=== PATIENT | male | born 1975 | race Caucasian/White ===

== ENCOUNTER 2019-08-28 17:46 | Inpatient (IN) | payer MEDICARE, MEDICAID, OTHER ==
[~2019-08-28] VITALS: Ht 170.2 cm; Wt 72.7 kg
[~2019-08-28 17:46] MED LIST: DIPH25 PO; FLUD25I SQ; FLUP10 PO; VALP250S23 PO
[2019-08-28] MEDS ORDERED: TRAZ-252 PO (18:39)
[2019-08-28] MEDS ORDERED: ATOR20TA86 PO (18:39)
[2019-08-28] MEDS ORDERED: IBUP-2071 PO (18:39)
[2019-08-28] MEDS ORDERED: LORazepam 2 MG/ML VIAL IM ONE (20:15)
[2019-08-28] MEDS ORDERED: ZOLPIDEM TARTRATE 10 MG TABLET PO PRN (21:00)
[2019-08-28] MEDS ORDERED: QUEtiapine FUMARATE 100 MG TABLET PO PRN (21:00)
[2019-08-28] MEDS ORDERED: LORazepam 2 MG TABLET PO PRN (21:00)
[2019-08-28] MEDS ORDERED: ZIPRASIDONE MESYLATE 20 MG/VIAL IM ONE (21:30)
[2019-08-28] MEDS ORDERED: DiphenhydrAMINE HCL 50 MG/ML VIAL IM ONE (21:30)
[2019-08-29 00:43] LABS: BASOPHILS % (AUTO) 0.4 % (0.0-2.0); EOSINOPHILS % (AUTO) 2.7 % (1.0-6.0); HEMATOCRIT 39.7 % (41-53); HEMOGLOBIN 13.2 g/dL (13.5-17.5); LYMPHOCYTES # (AUTO) 3.6 K/uL (1.0-4.8); LYMPHOCYTES % (AUTO) 44.7 % (22.0-44.0); MEAN CORPUSCULAR HEMOGLOBIN 31.9 pg (26.0-34.0); MEAN CORPUSCULAR HGB CONC 33.3 G/dL (31.0-37.0); MEAN CORPUSCULAR VOLUME 96 fL (80-100); MONOCYTES # (AUTO) 0.6 K/uL (0.1-1.0); MONOCYTES % (AUTO) 7.9 % (2.0-9.0); NEUTROPHILS # (AUTO) 3.6 K/uL (1.8-7.7); NEUTROPHILS % (AUTO) 44.3 % (40.0-70.0); PLATELET COUNT (AUTO) 173 K/uL (150-450); RED BLOOD CELL COUNT(AUTO) 4.15 MIL/uL (4.50-5.90); RED CELL DISTRIBUTION WIDTH 14.1 % (11.5-14.5)
[2019-08-29 00:46] LABS: ANION GAP 7 mmol/L (8-16); CALCIUM, TOTAL 8.1 mg/dL (8.8-10.5); CARBON DIOXIDE 28 mmol/L (22-29); CHLORIDE 107 mmol/L (98-107); CREATININE 1.03 mg/dL (0.60-1.30); GLOMERULAR FILTR. RATE CALC > 60 mL/min (>60); GLUCOSE,RANDOM 112 mg/dL (70-110); SODIUM SERUM 142 mmol/L (136-145); UREA NITROGEN, BLOOD 20 mg/dL (7-18)
[2019-08-29 00:51] LABS: ALANINE AMINOTRANSFERASE 35 U/L (12-78); ALBUMIN 3.2 g/dL (3.4-5.0); ALKALINE PHOSPHATASE 54 U/L (46-116); ASPARTATE AMINOTRANSFERASE 15 U/L (15-37); BILIRUBIN,TOTAL 0.2 mg/dL (0.1-1.0); TOTAL PROTEIN, SERUM 5.8 g/dL (6.4-8.2)
[2019-08-29 03:29] LABS: CHOL/HDL RATIO 2.6 (4.2-7.3); CHOLESTEROL 113 mg/dL (131-200); HDL CHOLESTEROL 44 mg/dL (40-60); LDL CHOL (CALC.) 55 mg/dL (0-130); TRIGLYCERIDES 68 mg/dL (15-150)
[2019-08-29 05:25] VITALS: BP 120/70
[2019-08-29] MEDS ORDERED: INFLUENZA VIRUS VACCINE QVS 2019-20 (3YR+)/PF 60 MCG/0.5 ML SYRINGE IM ONE (06:00)
[2019-08-29 10:09] VITALS: BP 119/79
[2019-08-29 16:37] VITALS: BP 116/76
[2019-08-30 06:59] VITALS: BP 121/69
[2019-08-30 08:09] VITALS: BP 100/61
[2019-08-30] MEDS ORDERED: LOPERAMIDE HCL 2 MG CAPSULE PO PRN (10:15)
[2019-08-30] MEDS ORDERED: ONDANSETRON HCL 4 MG TABLET PO PRN (10:15)
[2019-08-30] MEDS ORDERED: PETROLATUM,WHITE 28 GM JELLY TP PRN (10:15)
[2019-08-30] MEDS ORDERED: GuaiFENesin/D-METHORPHAN [SUGAR-FREE] 200-20MG/10 ML SYRUP UDCUP PO PRN (10:15)
[2019-08-30] MEDS ORDERED: CloNIDine HCL 0.1 MG TABLET PO PRN (10:15)
[2019-08-30] MEDS ORDERED: DOCUSATE SODIUM 100 MG CAPSULE PO PRN (10:15)
[2019-08-30] MEDS ORDERED: MAGNESIUM HYDROXIDE SUSPENSION 30 ML UDCUP PO PRN (10:15)
[2019-08-30] MEDS ORDERED: NICOTINE 14 MG/24 HOUR PATCH TD PRN (10:15)
[2019-08-30] MEDS ORDERED: ACETAMINOPHEN 325 MG TABLET PO PRN (10:15)
[2019-08-30] MEDS ORDERED: ALBUTEROL SULFATE HFA 90 MCG/PUFF 8 GM INHALER IH PRN (10:15)
[2019-08-30] MEDS ORDERED: MAG HYDROX/AL HYDROX/SIMETH ES 30 ML SUSPENSION UDCUP PO PRN (10:15)
[2019-08-30 16:00] VITALS: BP 135/88
[2019-08-30] MEDS: IBUPROFEN 400 MG TABLET PO PRN (16:52)
[2019-08-30] MEDS: TraZODone HCL 50 MG TABLET PO SCH (20:51)
[2019-08-30] MEDS ORDERED: RisperiDONE MICROSPHERES 50 MG/2 ML SYRINGE IM SCH (21:00)
[2019-08-31 06:41] VITALS: BP 122/64
[2019-08-31] MEDS: DiphenhydrAMINE HCL 25 MG CAPSULE PO SCH ×3 (09:26→16:29)
[2019-08-31] MEDS: ATORVASTATIN CALCIUM 20 MG TABLET PO SCH (09:26)
[2019-08-31 13:33] VITALS: BP 113/65
[2019-08-31 16:18] VITALS: BP 137/80
[2019-08-31] MEDS: TraZODone HCL 50 MG TABLET PO SCH (20:20)
[2019-09-01 06:16] VITALS: BP 129/69
[2019-09-01] MEDS: IBUPROFEN 400 MG TABLET PO PRN (06:47)
[2019-09-01 07:47] VITALS: BP 133/68
[2019-09-01 08:13] VITALS: BP 133/68
[2019-09-01] MEDS: DiphenhydrAMINE HCL 25 MG CAPSULE PO SCH ×3 (08:25→16:18)
[2019-09-01] MEDS: ATORVASTATIN CALCIUM 20 MG TABLET PO SCH (08:26)
[2019-09-01 16:02] VITALS: BP 114/68
[2019-09-01] MEDS: TraZODone HCL 50 MG TABLET PO SCH (19:52)
[2019-09-02 06:34] VITALS: BP 125/79
[2019-09-02 08:16] VITALS: BP 135/82
[2019-09-02] MEDS ORDERED: TRAZ-252 PO (08:37)
[2019-09-02] MEDS ORDERED: RISPC50 IM (08:38)
[2019-09-02] MEDS ORDERED: DIPH25 PO (08:38)
[2019-09-02] MEDS: DiphenhydrAMINE HCL 25 MG CAPSULE PO SCH (08:58)
[2019-09-02] MEDS: ATORVASTATIN CALCIUM 20 MG TABLET PO SCH (08:58)
== END 2019-09-02 12:40 | disposition home or self-care (01) | DRG 885 ==
LOC: EMS 17:48 → B3A 08-29 03:17
PROVIDERS: ADMIT Psychiatry & Neurology Psychiatry; ATTEND Psychiatry & Neurology Psychiatry
DX: F20.0 Paranoid schizophrenia (principal); D64.9 Anemia, unspecified; E03.9 Hypothyroidism, unspecified; E78.00 Pure hypercholesterolemia, unspecified; E78.5 Hyperlipidemia, unspecified; F10.10 Alcohol abuse, uncomplicated; F17.210 Nicotine dependence, cigarettes, uncomplicated; I10 Essential (primary) hypertension; J44.9 Chronic obstructive pulmonary disease, unspecified; K21.9 Gastro-esophageal reflux disease without esophagitis; Z71.6 Tobacco abuse counseling; Z79.899 Other long term (current) drug therapy
CPT/HCPCS: 90686; 96372; 99406; G0480; J1200; J2060; J2794; J3486

== ENCOUNTER 2020-05-30 19:39 | Inpatient (IN) | payer MEDICARE, MEDICAID ==
[~2020-05-30] VITALS: Ht 167.6 cm; Wt 74.4 kg
[~2020-05-30 19:39] MED LIST changes: +ATOR20TA86 PO; -FLUD25I SQ; -FLUP10 PO; +OMEP20 PO; +TRAZ-252 PO; -VALP250S23 PO
[2020-05-30] MEDS ORDERED: TUBERCULIN, PURIFIED PROTEIN DERIVATIVE 5 TU/0.1 ML SYRINGE ID ONE (20:15)
[2020-05-30] MEDS ORDERED: ZIPRASIDONE MESYLATE 20 MG/VIAL IM ONE ×2 (20:15→20:25)
[2020-05-30] MEDS ORDERED: ZOLPIDEM TARTRATE 10 MG TABLET PO PRN (20:15)
[2020-05-30] MEDS ORDERED: MAGNESIUM HYDROXIDE SUSPENSION 30 ML UDCUP PO PRN (20:15)
[2020-05-30] MEDS ORDERED: QUEtiapine FUMARATE 100 MG TABLET PO PRN (20:15)
[2020-05-30] MEDS ORDERED: PROMETHAZINE HCL 25 MG TABLET PO PRN (20:15)
[2020-05-30] MEDS ORDERED: LORazepam 2 MG TABLET PO PRN (20:15)
[2020-05-30] MEDS ORDERED: HydrOXYzine PAMOATE 50 MG CAPSULE PO PRN (20:15)
[2020-05-30] MEDS ORDERED: ACETAMINOPHEN 325 MG TABLET PO PRN (20:15)
[2020-05-30] MEDS ORDERED: MAG HYDROX/AL HYDROX/SIMETH ES 30 ML SUSPENSION UDCUP PO PRN (20:15)
[2020-05-30] MEDS ORDERED: GuaiFENesin/D-METHORPHAN [SUGAR-FREE] 200-20MG/10 ML SYRUP UDCUP PO PRN (20:15)
[2020-05-30] MEDS ORDERED: LOPERAMIDE HCL 2 MG CAPSULE PO PRN (20:15)
[2020-05-30] MEDS ORDERED: QUEtiapine FUMARATE 200 MG TABLET PO SCH (21:00)
[2020-05-30] MEDS ORDERED: DIVALPROEX SODIUM 500 MG ER TABLET PO SCH (21:00)
[2020-05-31 06:22] VITALS: BP 132/83
[2020-05-31 08:50] VITALS: BP 126/73
[2020-05-31] MEDS: THIAMINE 100 MG TABLET PO SCH ×3 (08:50→16:27)
[2020-05-31] MEDS: FOLIC ACID 1 MG TABLET PO SCH (08:50)
[2020-05-31] MEDS ORDERED: MULTIVITAMINS WITH MINERALS, THERAPEUTIC TABLET PO SCH (09:00)
[2020-05-31] MEDS: NALTREXONE HCL 50 MG TABLET PO SCH (09:00)
[2020-05-31] MEDS ORDERED: HydrOXYzine PAMOATE 50 MG CAPSULE PO PRN (15:30)
[2020-05-31] MEDS ORDERED: GuaiFENesin/D-METHORPHAN [SUGAR-FREE] 200-20MG/10 ML SYRUP UDCUP PO PRN (15:30)
[2020-05-31] MEDS ORDERED: PALIPERIDONE 1.5 MG ER TABLET PO PRN (15:30)
[2020-05-31 16:13] VITALS: BP 124/71
[2020-05-31] MEDS: TraZODone HCL 50 MG TABLET PO SCH (20:31)
[2020-05-31] MEDS: DiphenhydrAMINE HCL 25 MG CAPSULE PO SCH (20:31)
[2020-05-31] MEDS: PALIPERIDONE 3 MG ER TABLET PO SCH (20:31)
[2020-06-01 00:15] VITALS: BP 125/74
[2020-06-01 07:17] LABS: BASOPHILS % (AUTO) 0.5 % (0.0-2.0); EOSINOPHILS % (AUTO) 2.2 % (1.0-6.0); HEMATOCRIT 41.8 % (41-53); HEMOGLOBIN 14.1 g/dL (13.5-17.5); LYMPHOCYTES # (AUTO) 2.7 K/uL (1.0-4.8); LYMPHOCYTES % (AUTO) 41.6 % (22.0-44.0); MEAN CORPUSCULAR HEMOGLOBIN 32.5 pg (26.0-34.0); MEAN CORPUSCULAR HGB CONC 33.8 G/dL (31.0-37.0); MEAN CORPUSCULAR VOLUME 96 fL (80-100); MONOCYTES # (AUTO) 0.4 K/uL (0.1-1.0); MONOCYTES % (AUTO) 6.2 % (2.0-9.0); NEUTROPHILS # (AUTO) 3.2 K/uL (1.8-7.7); NEUTROPHILS % (AUTO) 49.5 % (40.0-70.0); PLATELET COUNT (AUTO) 196 K/uL (150-450); RED BLOOD CELL COUNT(AUTO) 4.34 MIL/uL (4.50-5.90); RED CELL DISTRIBUTION WIDTH 13.9 % (11.5-14.5)
[2020-06-01 07:47] LABS: ALANINE AMINOTRANSFERASE 25 U/L (12-78); ALBUMIN 3.7 g/dL (3.4-5.0); ALKALINE PHOSPHATASE 61 U/L (46-116); ANION GAP 6 mmol/L (8-16); ASPARTATE AMINOTRANSFERASE 12 U/L (15-37); BILIRUBIN,TOTAL 0.2 mg/dL (0.1-1.0); CARBON DIOXIDE 30 mmol/L (22-29); CHLORIDE 107 mmol/L (98-107); CHOL/HDL RATIO 3.3 (4.2-7.3); CHOLESTEROL 145 mg/dL (131-200); CREATININE 1.12 mg/dL (0.60-1.30); FREE T4 (FREE THYROXINE) 0.96 ng/dL (0.76-1.46); GLOMERULAR FILTR. RATE CALC > 60 mL/min (>60); GLUCOSE,RANDOM 98 mg/dL (70-110); HDL CHOLESTEROL 44 mg/dL (40-60); LDL CHOL (CALC.) 63 mg/dL (0-130); POTASSIUM 4.6 mmol/L (3.5-5.1); SODIUM SERUM 143 mmol/L (136-145); THYROID STIMULATING HORMONE 0.93 uIU/mL (0.36-3.74); TOTAL PROTEIN, SERUM 6.5 g/dL (6.4-8.2); TRIGLYCERIDES 189 mg/dL (15-150); UREA NITROGEN, BLOOD 15 mg/dL (7-18)
[2020-06-01 07:55] LABS: HEMOGLOBIN A1C 5.8 % (3.8-5.6)
[2020-06-01] MEDS: NALTREXONE HCL 50 MG TABLET PO SCH (08:50)
[2020-06-01] MEDS: FOLIC ACID 1 MG TABLET PO SCH ×2 (08:51→09:35)
[2020-06-01] MEDS: THIAMINE 100 MG TABLET PO SCH ×3 (08:51→16:26)
[2020-06-01] MEDS: MULTIVITAMINS WITH MINERALS, THERAPEUTIC TABLET PO SCH (08:51)
[2020-06-01 09:52] VITALS: BP 120/54
[2020-06-01 16:16] VITALS: BP 109/67
[2020-06-01] MEDS: DiphenhydrAMINE HCL 25 MG CAPSULE PO SCH (20:37)
[2020-06-01] MEDS: TraZODone HCL 50 MG TABLET PO SCH (20:37)
[2020-06-01] MEDS: PALIPERIDONE 3 MG ER TABLET PO SCH (20:37)
[2020-06-02 05:55] VITALS: BP 116/74
[2020-06-02 08:12] VITALS: BP 123/64
[2020-06-02] MEDS: MULTIVITAMINS WITH MINERALS, THERAPEUTIC TABLET PO SCH (08:37)
[2020-06-02] MEDS: NALTREXONE HCL 50 MG TABLET PO SCH (08:37)
[2020-06-02] MEDS: FOLIC ACID 1 MG TABLET PO SCH (08:38)
[2020-06-02] MEDS: THIAMINE 100 MG TABLET PO SCH ×2 (08:38→16:17)
[2020-06-02 16:13] VITALS: BP 121/75
[2020-06-02] MEDS: TraZODone HCL 50 MG TABLET PO SCH (20:57)
[2020-06-02] MEDS: DiphenhydrAMINE HCL 25 MG CAPSULE PO SCH (20:57)
[2020-06-02] MEDS: PALIPERIDONE 3 MG ER TABLET PO SCH (20:58)
[2020-06-03 03:06] VITALS: BP 111/66
[2020-06-03 08:22] VITALS: BP 115/75
[2020-06-03] MEDS: NALTREXONE HCL 50 MG TABLET PO SCH ×2 (09:00→09:36)
[2020-06-03] MEDS: FOLIC ACID 1 MG TABLET PO SCH (09:36)
[2020-06-03] MEDS: MULTIVITAMINS WITH MINERALS, THERAPEUTIC TABLET PO SCH (09:36)
[2020-06-03] MEDS: THIAMINE 100 MG TABLET PO SCH ×2 (09:36→16:23)
[2020-06-03 16:17] VITALS: BP 128/77
[2020-06-03] MEDS: PALIPERIDONE 3 MG ER TABLET PO SCH (20:18)
[2020-06-03] MEDS: DiphenhydrAMINE HCL 25 MG CAPSULE PO SCH (20:18)
[2020-06-03] MEDS: TraZODone HCL 50 MG TABLET PO SCH (20:19)
[2020-06-04 06:04] VITALS: BP 120/87
[2020-06-04 08:31] VITALS: BP 122/67
[2020-06-04] MEDS: NALTREXONE HCL 50 MG TABLET PO SCH (08:43)
[2020-06-04] MEDS: THIAMINE 100 MG TABLET PO SCH ×2 (08:43→15:58)
[2020-06-04] MEDS: FOLIC ACID 1 MG TABLET PO SCH (08:43)
[2020-06-04] MEDS: MULTIVITAMINS WITH MINERALS, THERAPEUTIC TABLET PO SCH (08:43)
[2020-06-04 16:13] VITALS: BP 125/82
[2020-06-04] MEDS: TraZODone HCL 50 MG TABLET PO SCH (20:16)
[2020-06-04] MEDS: DiphenhydrAMINE HCL 25 MG CAPSULE PO SCH (20:16)
[2020-06-04] MEDS ORDERED: PALIPERIDONE 6 MG ER TABLET PO SCH (21:00)
[2020-06-05 04:48] VITALS: BP 119/74
[2020-06-05 09:00] VITALS: BP 108/55
[2020-06-05] MEDS: NALTREXONE HCL 50 MG TABLET PO SCH (09:20)
[2020-06-05] MEDS: NICOTINE 14 MG/24 HOUR PATCH TD SCH (09:20)
[2020-06-05] MEDS: ATORVASTATIN CALCIUM 20 MG TABLET PO SCH (09:20)
[2020-06-05] MEDS: MULTIVITAMINS WITH MINERALS, THERAPEUTIC TABLET PO SCH (09:20)
[2020-06-05] MEDS: THIAMINE 100 MG TABLET PO SCH ×2 (09:21→16:14)
[2020-06-05] MEDS: FOLIC ACID 1 MG TABLET PO SCH (09:42)
[2020-06-05 16:26] VITALS: BP 122/95
[2020-06-05] MEDS: TraZODone HCL 100 MG TABLET PO SCH (20:12)
[2020-06-05] MEDS: DiphenhydrAMINE HCL 25 MG CAPSULE PO SCH (20:12)
[2020-06-05] MEDS: PALIPERIDONE 9 MG ER TABLET PO SCH ×2 (20:42→21:20)
[2020-06-06 05:33] VITALS: BP 110/82
[2020-06-06 08:07] VITALS: BP 117/67
[2020-06-06] MEDS: ATORVASTATIN CALCIUM 20 MG TABLET PO SCH (08:23)
[2020-06-06] MEDS: THIAMINE 100 MG TABLET PO SCH ×2 (08:23→16:44)
[2020-06-06] MEDS: NICOTINE 14 MG/24 HOUR PATCH TD SCH (08:23)
[2020-06-06] MEDS: NALTREXONE HCL 50 MG TABLET PO SCH (08:23)
[2020-06-06] MEDS: FOLIC ACID 1 MG TABLET PO SCH (08:27)
[2020-06-06] MEDS: MULTIVITAMINS WITH MINERALS, THERAPEUTIC TABLET PO SCH (08:27)
[2020-06-06 09:13] LABS: APPEARANCE,URINE CLEAR (CLEAR); BILIRUBIN,URINE NEGATIVE (NEGATIVE); GLUCOSE, URINE (UA) NEGATIVE (NEGATIVE); KETONES,URINE TRACE mg/dL (NEGATIVE); LEUKOCYTE ESTERASE ,URINE NEGATIVE (NEGATIVE); NITRATE,URINE NEGATIVE (NEGATIVE); OCCULT BLOOD,URINE NEGATIVE (NEGATIVE); PROTEIN,URINE NEGATIVE (NEGATIVE); UROBILINOGEN,URINE 0.2 mg/dL (<=1.0)
[2020-06-06 09:14] LABS: AMPHET/METH SCREEN,URINE NEGATIVE (NEGATIVE); BARBITURATE SCREEN, URINE NEGATIVE (NEGATIVE); BENZODIAZEPINES SCREEN,URINE NEGATIVE (NEGATIVE); CANNABINOID SCREEN,URINE NEGATIVE (NEGATIVE); COCAINE SCREEN,URINE NEGATIVE (NEGATIVE); METHADONE SCREEN, URINE NEGATIVE (NEGATIVE); OPIATE SCREEN,URINE NEGATIVE (NEGATIVE)
[2020-06-06 09:18] LABS: PHENCYCLIDINE SCREEN,URINE NEGATIVE (NEGATIVE)
[2020-06-06 16:11] VITALS: BP 116/63
[2020-06-06] MEDS: TraZODone HCL 100 MG TABLET PO SCH (20:09)
[2020-06-06] MEDS: DiphenhydrAMINE HCL 25 MG CAPSULE PO SCH (20:09)
[2020-06-06] MEDS: PALIPERIDONE 9 MG ER TABLET PO SCH (20:09)
[2020-06-07 05:45] VITALS: BP 114/74
[2020-06-07] MEDS: FOLIC ACID 1 MG TABLET PO SCH (08:00)
[2020-06-07] MEDS: NALTREXONE HCL 50 MG TABLET PO SCH (08:00)
[2020-06-07] MEDS: THIAMINE 100 MG TABLET PO SCH ×2 (08:00→16:28)
[2020-06-07] MEDS: MULTIVITAMINS WITH MINERALS, THERAPEUTIC TABLET PO SCH (08:00)
[2020-06-07] MEDS: ATORVASTATIN CALCIUM 20 MG TABLET PO SCH (08:00)
[2020-06-07] MEDS: NICOTINE 14 MG/24 HOUR PATCH TD SCH (08:00)
[2020-06-07 08:16] VITALS: BP 117/73
[2020-06-07 16:00] VITALS: BP 110/72
[2020-06-07] MEDS: DiphenhydrAMINE HCL 25 MG CAPSULE PO SCH (20:11)
[2020-06-07] MEDS: PALIPERIDONE 9 MG ER TABLET PO SCH (20:11)
[2020-06-07] MEDS: TraZODone HCL 100 MG TABLET PO SCH (20:11)
[2020-06-08 05:35] VITALS: BP 100/62
[2020-06-08] MEDS: NICOTINE 14 MG/24 HOUR PATCH TD SCH (08:42)
[2020-06-08] MEDS: MULTIVITAMINS WITH MINERALS, THERAPEUTIC TABLET PO SCH (08:42)
[2020-06-08] MEDS: THIAMINE 100 MG TABLET PO SCH ×2 (08:42→16:38)
[2020-06-08] MEDS: NALTREXONE HCL 50 MG TABLET PO SCH (08:42)
[2020-06-08] MEDS: ATORVASTATIN CALCIUM 20 MG TABLET PO SCH (08:42)
[2020-06-08] MEDS: FOLIC ACID 1 MG TABLET PO SCH (08:42)
[2020-06-08 09:09] VITALS: BP 126/62
[2020-06-08 16:44] VITALS: BP 109/63
[2020-06-08] MEDS: TraZODone HCL 100 MG TABLET PO SCH (20:56)
[2020-06-08] MEDS: DiphenhydrAMINE HCL 25 MG CAPSULE PO SCH (20:56)
[2020-06-08] MEDS: PALIPERIDONE 9 MG ER TABLET PO SCH (20:57)
[2020-06-09 01:52] VITALS: BP 110/78
[2020-06-09 08:35] VITALS: BP 97/69
[2020-06-09] MEDS: ATORVASTATIN CALCIUM 20 MG TABLET PO SCH (08:40)
[2020-06-09] MEDS: NICOTINE 14 MG/24 HOUR PATCH TD SCH (08:40)
[2020-06-09] MEDS: MULTIVITAMINS WITH MINERALS, THERAPEUTIC TABLET PO SCH (08:40)
[2020-06-09] MEDS: THIAMINE 100 MG TABLET PO SCH ×2 (08:40→16:28)
[2020-06-09] MEDS: FOLIC ACID 1 MG TABLET PO SCH (08:40)
[2020-06-09] MEDS: NALTREXONE HCL 50 MG TABLET PO SCH (08:40)
[2020-06-09] MEDS ORDERED: PALIPERIDONE PALMITATE 234 MG/1.5 ML SYRINGE IM SCH (09:00)
[2020-06-09 16:12] VITALS: BP 122/75
[2020-06-09] MEDS: TraZODone HCL 100 MG TABLET PO SCH (20:01)
[2020-06-09] MEDS: DiphenhydrAMINE HCL 25 MG CAPSULE PO SCH (20:01)
[2020-06-09] MEDS: PALIPERIDONE 9 MG ER TABLET PO SCH (20:32)
[2020-06-10 03:02] VITALS: BP 114/64
[2020-06-10 08:30] VITALS: BP 124/79
[2020-06-10] MEDS: MULTIVITAMINS WITH MINERALS, THERAPEUTIC TABLET PO SCH (09:00)
[2020-06-10] MEDS: NALTREXONE HCL 50 MG TABLET PO SCH (09:00)
[2020-06-10] MEDS: THIAMINE 100 MG TABLET PO SCH (09:42)
[2020-06-10] MEDS: ATORVASTATIN CALCIUM 20 MG TABLET PO SCH (09:43)
[2020-06-10] MEDS: FOLIC ACID 1 MG TABLET PO SCH (09:43)
[2020-06-10] MEDS: NICOTINE 14 MG/24 HOUR PATCH TD SCH (09:45)
[2020-06-10] MEDS ORDERED: NALT50TA6 PO (12:51)
[2020-06-10] MEDS ORDERED: PALI9TAB15 PO (12:51)
[2020-06-10] MEDS ORDERED: DIPH50 PO (12:53)
[2020-06-10] MEDS ORDERED: TRAZ-257 PO (12:56)
== END 2020-06-10 12:39 | disposition home or self-care (01) | DRG 885 ==
LOC: B3A 20:51 → B2S 06-07 07:14 → B2X 06-10 07:03
PROVIDERS: ADMIT Psychiatry & Neurology Psychiatry; ATTEND Psychiatry & Neurology Psychiatry
DX: F20.0 Paranoid schizophrenia (principal); E78.5 Hyperlipidemia, unspecified; F17.200 Nicotine dependence, unspecified, uncomplicated; G47.00 Insomnia, unspecified; J44.9 Chronic obstructive pulmonary disease, unspecified; F12.90 Cannabis use, unspecified, uncomplicated; Z81.8 Family history of other mental and behavioral disorders; Z91.19 Patient's noncompliance with other medical treatment and regimen
CPT/HCPCS: 80307; 83036; 84439; 84443; 86592; J3486